=== PATIENT | female | born 1960 | race Caucasian/White ===

== ENCOUNTER 2021-09-21 10:18 | Day surgery (SDC) | payer MEDICAID, OTHER ==
[~2021-09-21 10:18] MED LIST: Lactated Ringers 1,000 ML IV SCH; Sodium Chloride 0.9% 10 ML Syringe FLUSH PRN
[2021-09-21] MEDS ORDERED: Propofol 200 MG/20 ML SDV ONE ×2 (11:20→11:34)
[2021-09-21] MEDS ORDERED: fentaNYL 100 MCG/2 ML SDV ONE (11:21)
== END 2021-09-21 13:13 | disposition home or self-care (01) ==
LOC: VM.SDS 10:18
PROVIDERS: ATTEND Surgery
DX: Z12.11 Encounter for screening for malignant neoplasm of colon (principal); K62.1 Rectal polyp; I10 Essential (primary) hypertension; F41.1 Generalized anxiety disorder; F33.1 Major depressive disorder, recurrent, moderate; E03.9 Hypothyroidism, unspecified; G89.29 Other chronic pain; M25.562 Pain in left knee; F19.10 Other psychoactive substance abuse, uncomplicated; F51.5 Nightmare disorder; F17.210 Nicotine dependence, cigarettes, uncomplicated; Z79.899 Other long term (current) drug therapy; Z79.890 Hormone replacement therapy
CPT/HCPCS: 00812; J2704; J3010; J7120

== ENCOUNTER 2021-11-23 10:20 | Emergency (ER) | payer MEDICAID ==
[2021-11-23] MEDS ORDERED: Sodium Chloride 0.9% 10 ML Syringe FLUSH PRN (10:42)
[2021-11-23] MEDS: Sodium Chloride 0.9% 1,000 ML IV ONE (10:51)
[2021-11-23] MEDS: Morphine 4 MG/ML Syringe IVPUSH PRN (10:51)
[2021-11-23] MEDS: LORazepam 2 MG/ML SDV IVPUSH ONE (11:18)
[2021-11-23 11:26] LABS: SODIUM,NA 128 mmol/L (136-145)
[2021-11-23 11:29] LABS: CHLORIDE,CL 77 mmol/L (98-107)
[2021-11-23 11:31] LABS: ANION GAP 29.7 mmol/L (5-15); ESTIMATED GFR 64 mL/min (>=60)
[2021-11-23] MEDS: Potassium Chloride Riders 20 MEQ in Premix Bag 1 BAG IV ONE (11:50)
[2021-11-23] MEDS: cefTRIAXone 2 GM Vial IVPUSH SCH (12:11)
[2021-11-23] MEDS: VANCOmycin 1.5 GM/300 ML 1.5 GM in Premix Bag 1 BAG IV SCH (12:11)
[2021-11-23] MEDS ORDERED: Sodium Chloride 0.9% 1,000 ML IV SCH (13:30)
== END 2021-11-23 15:30 | disposition short-term general hospital (02) ==
LOC: VM.ED 10:20
DX: A41.51 Sepsis due to Escherichia coli [E. coli] (principal); N30.01 Acute cystitis with hematuria; R41.0 Disorientation, unspecified; I10 Essential (primary) hypertension; E03.9 Hypothyroidism, unspecified; F17.210 Nicotine dependence, cigarettes, uncomplicated; Z79.899 Other long term (current) drug therapy
CPT/HCPCS: 36415; 70450; 71045; 80053; 80307; 81001; 83605; 83735; 85025; 85379; 87040; 87086; 87088; 87186; 93005; 93010; 96361; 96365; 96366; 96368; 96375; 99285; 99285-25; J0696; J2060; J2270; J3370; J3480; J7030; U0002